=== PATIENT | male | born 1950 | race Caucasian/White ===

== ENCOUNTER → 2020-06-06 11:20 | Outpatient (CLI) | payer MEDICARE, OTHER, SELFPAY ==
--- NOTE | ~2020-06-06 | US_ITS ---
EXAMINATION: US scrotum doppler DATE: 06/06/2020 11:48 INDICATION: Right scrotal swelling for 6-7 months. TECHNIQUE: Grayscale and Doppler ultrasound images of the testes were obtained. COMPARISON: None. FINDINGS: The right testis measures 5.1 x 2.8 x 4.6 cm. The left testis measures 4.5 x 2.4 x 3.0 cm. Left testis demonstrates ill-defined areas of mild hypoechogenicity. There is normal vascular flow to both testes. The right epididymis contains cysts measuring up to 2 mm. The left epididymis is normal with normal vascular flow. There is no hydrocele. There are bilateral varicoceles. IMPRESSION: 1. Heterogeneous echogenicity of the left testis, likely secondary to old insult. 2. Bilateral varicoceles. Reviewed, dictated and finalized at location A. L BEARING BROACHER IMPRESSION: 1. Heterogeneous echogenicity of the left testis, likely secondary to old insu lt. 2. Bilateral varicoceles.
== END ==
PROVIDERS: PCP Family Medicine; Visit Provider Family Medicine
DX: N50.89 Other specified disorders of the male genital organs (principal); I86.1 Scrotal varices
CPT/HCPCS: 76870; 93976

== ENCOUNTER → 2022-05-09 08:20 | Outpatient (CLI) | payer MEDICARE, OTHER, SELFPAY ==
--- NOTE | 2022-05-24 19:57 | WPDHOMESLEEP ---
Sleep Study - Home Unattended Date of Study: 05/09/22 Ordering Provider: Gui Dunn MD Interpreting Provider: Katheryn Boswell, DO Home Sleep Study Type: Watch PAT Height: 1.68 m Weight: 86.183 kg Body Mass Index: 30.7 Neck Circumference (inches): 17 [place]: 6 Reason for Sleep Study Snoring and daytime hypersomnia Sleep History The patient is a 71-year-old male with chronic neck pain, type 2 diabetes, essential tremor neuritis of left ulnar nerve, nocturia, obesity and history of tobacco use a sleep study ordered by his primary care for evaluation of sleep apnea. the patient occasionally snores loud enough that others complain. He denies having trouble sleeping when he has a cold. He rarely wakes up gasping for air throughout the night. He rarely has breathing problems at night observed by self or others. He denies sweating excessively at night. He denies having heart palpitations or irregular heartbeats during the night. Occasionally falls asleep during the day but rarely falls asleep while driving. He denies sleep paralysis, cataplexy and hypnagogic/ hypnopompic hallucinations. Denies having trouble at school work due to sleepiness. He denies feeling afraid of going to sleep. He denies having nightmares. He his dreams. He denies worsening recently. He denies feelings depressed or anxious. He denies having muscular tension he occasionally notices parts of his body jerk. He rarely kicks during the night he occasionally has crawling and aching feelings in his legs and occasionally has pain during night. He denies grinding his teeth during sleep and denies awakening with morning jaw pain. He is rarely bothered by pain during the day and rarely awakened by pain during the night. He rarely wakes up feeling stiff in the morning. He wakes up with sore and achy muscles. Pain in the neck, spine or other joints He goes to his midnight on which days and 1:00 a.m. on the weekends. Takes simvastatin for his falls. He wakes up once throughout the night to urinate. He is able to fall back asleep within 5 minutes. He has 6 hours of sleep per night. He will stay with less than 5 minutes after which the morning. He currently is his . He will consume caffeinated beverage within 2 hours of time. He has sensation physical exercise before bedtime. She is still vision before falling asleep. He will take naps in the afternoon or the evening but they are not refreshing. He does consume caffeinated beverages throughout the day. He is a former smoker. He denies and recreational drug use. [facility] Past Medical History Medical History Acute non-recurrent maxillary sinusitis BMI 30.0-30.9,adult BMI 31.0-31.9,adult BMI 32.0-32.9,adult Body mass index (bmi) 31.0-31.9, adult (07/16/18) BPH without obstruction/lower urinary tract symptoms PSA 0.43 on 10/03/2021. Chronic neck pain Colon cancer screening Controlled type 2 diabetes mellitus with hyperglycemia, without long-term current use of insulin Glucose 91 and hemoglobin A1c 7.0 on 02/28/2021. Glucose 157 with hemoglobin A1c 8.5 and urine microalbumin ratio at 15 on 10/03/2021. COVID-19 (12/08/21) tested positive 12/09/2021. Diabetes mellitus with hyperglycemia, with long-term current use of insulin Enlarged testicle Essential tremor Hypersomnia Hyponatremia sodium 127 on 04/17/2022. this may be secondary to glimepiride, discontinue 04/23/2022 per Infected sebaceous cyst Male erectile dysfunction, unspecified Myalgia Neuritis of left ulnar nerve Nocturia PSA normal at 0.43 on 10/03/2021. Obesity (BMI 30.0-34.9) Syncope (04/17/22) Vitamin B12 deficiency anemia B12 379 on 02/28/2021. Normal at 528 with hemoglobin 13.6 on 10/03/2021. Family History Family History Mother Diabetes mellitus Family history of cardiovascular disease Grandparent Diabetes melissa
[2022-05-24 20:02] VITALS: BMI 30.7
== END ==
PROVIDERS: PCP Family Medicine; Visit Provider Family Medicine
DX: G47.10 Hypersomnia, unspecified (principal); R06.83 Snoring; G47.9 Sleep disorder, unspecified; E11.9 Type 2 diabetes mellitus without complications; G56.22 Lesion of ulnar nerve, left upper limb; Z87.891 Personal history of nicotine dependence
CPT/HCPCS: 99199

== ENCOUNTER 2022-06-29 10:19 | Outpatient (CLI) | payer MEDICARE, OTHER, SELFPAY ==
--- NOTE | ~2022-06-29 | XR_ITS ---
Clinical Indication: Cough PA and lateral views of the chest: Comparison: None Findings: The lungs are clear, without evidence of focal consolidation or pleural effusion. There is evidence of prior CABG. No cardiomegaly. Bones and soft tissues are unremarkable. Impression: Clear lungs. Status post CABG. Reviewed, dictated and finalized at location . Impression: Clear lungs. Status post CABG.
== END 2022-06-29 10:20 | disposition home or self-care (01) ==
LOC: ANHIMG 10:25
PROVIDERS: PCP Family Medicine; Visit Provider Family Medicine
DX: J20.9 Acute bronchitis, unspecified (principal); Z95.1 Presence of aortocoronary bypass graft
CPT/HCPCS: 71046

== ENCOUNTER 2023-03-12 18:20 | Emergency (ER) | payer MEDICARE, OTHER, SELFPAY ==
--- NOTE | ~2023-03-12 | CT_ITS ---
EXAMINATION: CT abdomen pelvis w con DATE: 03/12/2023 23:23 INDICATION: generalized abdominal pain TECHNIQUE: Computed tomography (CT) of the abdomen and pelvis was performed with 100 mL Omnipaque-350 intravenous contrast. Automated exposure control and iterative reconstruction technique were employe d. The dose-length product was 756.52 mGy-cm. COMPARISON: None. FINDINGS: Lower thorax: Coronary artery calcifications Liver: Normal. Biliary/Gallbladder: Cholelithiasis. No bile duct dilation. Pancreas: No mass or duct dilation. Spleen: Normal. Adrenals:No mass. Kidneys: No suspicious mass, obstructing stone, or hydronephrosis. GI tract: No small or large bowel dilation. Normal appendix. Mesentery/Peritoneum: No ascites, mass, or free air. Retroperitoneum: No mass. Atherosclerotic abdominal aortic and/or arterial calcifications. Pelvis: Distended urinary bladder with mild wall thickening. Prostatomegaly. Soft Tissues: Soft tissues and body wall unremarkable. Bones: No acute osseous finding. Bilateral L5 pars defects. Grade 2 anterolisthesis at L5-S1. IMPRESSION: Urinary bladder wall thickening in a distended urinary bladder, correlate for clinical history of uri nary retention and with urinalysis. No other acute abdominal pelvic process detected. Reviewed, dictated and finalized at location K. RUCTOR KNITTING IMPRESSION: Urinary bladder wall thickening in a distended urinary bladder, correlate for c linical history of urinary retention and with urinalysis. No other acute abdominal pelvic process detected.
--- NOTE | ~2023-03-12 | XR_ITS ---
EXAMINATION: XR chest 1V portable Exam Date/Time: 03/12/2023 22:40 [employer] HISTORY: MID ABDOMINAL X 3 DAYS Comparison: 06/29/2022. RESULT: Lines, tubes, and devices: Intact sternotomy wires. Mediastinal surgical clips. Lungs and pleura: Clear. Cardiomediastinal silhouette: Stable. Other: No acute osseous or upper abdominal finding. IMPRESSION: No acute cardiopulmonary process. Reviewed, dictated and finalized at location K. O [employer]
[2023-03-12 18:28] VITALS: BP 128/69; PULSE 79; RESP 20; TEMP 37; O2SAT 97
[2023-03-12 18:57] LABS: Basophils Percent Auto 0.4 % (0.2-1.2); Eosinophils Absolute Auto 0.1 K/mm3 (0-0.3); Hematocrit 37.3 % (42.0-52.0); Hemoglobin 13.3 g/dL (14.0-18.0); Immature Granulocyte Absolute 0.03 K/mm3 (0.00-0.031); Immature Granulocyte Percent A 0.3 % (0-0.5); Lymphocytes Absolute Auto 1.48 K/mm3 (0.9-3.2); Lymphocytes Percent Auto 14.5 % (18.3-44.2); Mean Corpuscular HGB Conc 35.7 g/dl (32-36); Mean Corpuscular Hemoglobin 31.1 pg (26-34); Mean Corpuscular Volume 87.1 fl (80-100); Monocytes Absolute Auto 1.3 K/mm3 (0.1-0.6); Monocytes Percent Auto 12.3 % (2.6-8.5); Neutrophils Absolute Auto 7.3 K/mm3 (1.3-6.7); Neutrophils Percent Auto 71.5 % (45.5-73.1); Platelet Count Result 325 k/mm3 (150-375); Red Blood Count 4.28 M/mm3 (4.6-6.20); Red Cell Distribution Width 11.7 % (11.5-14.5); White Blood Count 10.2 K/mm3 (4.5-10.0)
[2023-03-12 19:14] LABS: Alanine Aminotransferase 27 U/L (6-50); Albumin Level 4.5 g/dL (3.5-5.1); Alkaline Phosphatase 55 U/L (38-126); Anion Gap 13 mmol/L (8-16); Aspartate Amino Transferase 31 U/L (17-59); Bilirubin,Total 0.6 mg/dL (0.2-1.3); Blood Urea Nitrogen 21 mg/dL (9-20); Calcium 9.6 mg/dL (8.4-10.2); Carbon Dioxide 24 mmol/L (22-30); Chloride 87 mmol/L (98-107); Estimated CRCL calculation 48 ml/min; Estimated Glomerular Filt Rate 55; Glucose 189 mg/dL (65-110); Lipase 97 U/L (23-300); Potassium 4.6 mmol/L (3.4-5.0); Sodium 124 mmol/L (137-145)
[2023-03-12 20:02] LABS: Appearance Urine Cloudy (Clear); Bacteria Urine None Seen /hpf; Bilirubin Urine Negative (Negative); Blood Urine Negative (Negative); Color Urine Dark Yellow (Yellow); Glucose Urine UA Negative (Negative); Granular Casts Urine Present /lpf; Hyaline Casts Urine Present /lpf; Ketones Urine Trace mg/dL (Negative); Leukocyte Esterase Ur Negative LEU/UL (Negative); Nitrate Urine Negative (Negative); Protein Urine Trace mg/dL (Negative); RBC Urine 0-2 /hpf (0-2); Specific Grav Ur 1.016 (1.001-1.035); Squamous Epithelial Cell Urine Occasional /hpf (Few); Urobilinogen Urine 0.2 mg/dL (<2.0); WBC Urine 0-5 /hpf
[2023-03-12 20:06] LABS: Add Urine Microscopic? YES
--- NOTE | 2023-03-12 22:06 | ECG_ITS ---
Measurements Intervals [place] Rate: 80 P: 40 VT: 169 QRS: 46 QRSD: 89 T: 83 QT: 382 QTc: 443 Interpretive Statements SINUS RHYTHM MINIMAL Q WAVES- INFERIOR LEADS NONSPECIFIC ST & T-WAVE ABNORMALITY- HIGH LATERAL LEADS BORDERLINE ECG NO PREVIOUS ECG AVAILABLE FOR COMPARISON Electronically Signed On 03-13-2023 6:20:59 [employer] by Prashant Al D.O.
[2023-03-12 22:08] VITALS: BP 156/92; PULSE 76; RESP 15; TEMP 36.8; O2SAT 100
--- NOTE | 2023-03-12 22:38 | ED.ABDPAIN ---
HPI - Abdominal Pain General Chief Complaint: Abdominal Pain Stated Complaint: abd pain Time Seen by Provider: 03/12/23 22:12 History of Present Illness HPI narrative: 72-year-old male with a history of hyponatremia, angina, type 2 diabetes, coronary artery disease, hypertension, hyperlipidemia, history of 3 vessel CABG in 97 and stents placed 2 years ago reports for evaluation for generalized abdominal pain for the past 4 days. Patient states he woke up 4 days ago with abdominal pain that is worse with eating. He states the pain is generalized but states that he had to identify a spot where the pain is worse with deep the left upper quadrant. He states he had approximately 3-4 episodes of diarrhea on day 1 and 2 of the illness which has since resolved. He denies urinary frequency urgency, dysuria hematuria, hematochezia or melena, cough or congestion, fever. He does state that his states he felt hot at the onset of his symptoms 4 days ago. Upon my evaluation, the patient states that his abdominal pain has improved significantly without intervention, however he developed chest pain 20 minutes ago. He states the pain is in his left anterior chest wall and has not radiate anywhere. It is not associated with nausea or diaphoresis. He states it feels like his normal angina. He denies aggravating or alleviating factors. He takes isosorbide daily and believes he took his medications this morning. His leasing agent is Dr. Gutierrez with [facility]. Related Data Home Medications Medication Instructions Recorded Confirmed ferrous sulfate 325 mg (65 mg 325 mg PO DAILY 11/30/22 02/04/23 iron) tablet irbesartan 150 mg tablet 150 mg PO . b.i.d. 02/04/23 02/04/23 Allergies Allergy/AdvReac Type Severity Reaction Status Date / Time [id number] Reductase AdvReac Severe Joint Pain Verified 01/04/23 08:30 Inhibitor Review of Systems Review of Systems: CONSTITUTIONAL: Denies fever, chills, or sweats. EYES: Denies visual changes, redness, or discharge. ENT: Denies rhinorrhea, congestion, sore throat, or otalgia. CARDIOVASCULAR: see HPI RESPIRATORY: Denies cough or dyspnea. GASTROINTESTINAL: see HPI GENITOURINARY: Denies dysuria or hematuria. SKIN: Denies rash or itching. MUSCULOSKELETAL: Denies back pain, joint pain, or myalgia. NEUROLOGIC: Denies headache, numbness, or weakness. PSYCHIATRIC: Denies anxiety or depression. [facility] Past Medical History Medical History Acute bronchitis Chest x-ray 06/29/2022 with no active lung disease. Acute non-recurrent maxillary sinusitis At moderate risk for fall BMI 30.0-30.9,adult BMI 31.0-31.9,adult BMI 32.0-32.9,adult Body mass index (bmi) 31.0-31.9, adult (07/16/18) BPH without obstruction/lower urinary tract symptoms PSA 0.43 on 10/03/2021. Chronic neck pain Colon cancer screening Controlled type 2 diabetes mellitus with hyperglycemia, without long-term current use of insulin Glucose 91 and hemoglobin A1c 7.0 on 02/28/2021. Glucose 157 with hemoglobin A1c 8.5 and urine microalbumin ratio at 15 on 10/03/2021. COVID-19 (12/08/21) tested positive 12/09/2021. Diabetes mellitus with hyperglycemia, with long-term current use of insulin Fasting glucose 80 with hemoglobin A1c 7.8 with urine microalbumin ratio of 9 on 11/26/2022. Encounter for prostate cancer screening Enlarged testicle Essential tremor Hypersomnia home sleep study on 05/09/2022 failed to transmit information and useless test. Patient does not want to recheck. Hyponatremia sodium 127 on 04/17/2022. this may be secondary to glimepiride, discontinue 04/23/2022. Sodium 130 with a chloride 96 on 11/26/2022. Infected sebaceous cyst Male erectile dysfunction, unspecified Myalgia Neuritis of left ulnar nerve Nocturia PSA normal at 0.43 on 10/03/2021. Obesity (BMI 30.0-34.9) Osteoarthritis involving multiple joints on both sides of body Restless legs synd
[2023-03-12] MEDS: NITROGLYCERIN SL 0.4 MG TABLET SUBLINGUAL (23:02)
[2023-03-12] MEDS: SODIUM CHLORIDE 0.9% IV 1,000 ML 999 ML IV CONT (23:02)
--- NOTE | 2023-03-12 23:05 | PC.NURSE ---
Pt reports pain 2/10 before nitro sl.
[2023-03-12] MEDS: ASPIRIN 81 MG CHEWABLE TABLET 324 MG PO (23:06)
[2023-03-12 23:20] VITALS: BP 151/81; PULSE 85; RESP 16; O2SAT 100
[2023-03-12 23:20] LABS: Prothrombin Time 13.4 Seconds (11.1-14.7)
[2023-03-12 23:20] LABS: NT Pro B Type Natriuretic Pept 226 pg/mL (19.9-100); Troponin I < 0.012 ng/mL (0.000-0.034)
[2023-03-12 23:22] LABS: Lactic Acid Reflex 1.2 mmol/L (0.7-2.0); Partial Thromboplastin Time 29.2 SECONDS (22.3-36.8)
[2023-03-13 01:23] VITALS: BP 143/95; PULSE 72; RESP 16; O2SAT 100
[2023-03-13 01:28] LABS: Troponin I < 0.012 ng/mL (0.000-0.034)
[2023-03-13 02:01] LABS: Anion Gap 7 mmol/L (8-16); Blood Urea Nitrogen 17 mg/dL (9-20); Calcium 8.9 mg/dL (8.4-10.2); Carbon Dioxide 26 mmol/L (22-30); Chloride 92 mmol/L (98-107); Estimated CRCL calculation 68 ml/min; Estimated Glomerular Filt Rate > 60; Glucose 146 mg/dL (65-110); Potassium 4.1 mmol/L (3.4-5.0); Sodium 125 mmol/L (137-145)
[2023-03-13] MEDS: SODIUM CHLORIDE 0.9% IV 1,000 ML 999 ML IV CONT (02:09)
[2023-03-13 02:40] VITALS: BP 138/72; PULSE 68; RESP 12; TEMP 36.6; O2SAT 99
== END 2023-03-13 02:41 | disposition home or self-care (01) ==
PROVIDERS: Emergency Medicine; Emergency Provider Physician Assistant; PCP Family Medicine
DX: I25.118 Atherosclerotic heart disease of native coronary artery with other forms of angina pectoris (principal); E87.1 Hypo-osmolality and hyponatremia; E86.0 Dehydration; E87.8 Other disorders of electrolyte and fluid balance, not elsewhere classified; R10.84 Generalized abdominal pain; E11.9 Type 2 diabetes mellitus without complications; I10 Essential (primary) hypertension; M19.90 Unspecified osteoarthritis, unspecified site; Z79.4 Long term (current) use of insulin; Z87.891 Personal history of nicotine dependence; R94.31 Abnormal electrocardiogram [ECG] [EKG]
CPT/HCPCS: 36415; 71045; 74177; 80048; 80053; 81001; 83605; 83690; 83880; 84484; 85025; 85610; 85730; 93005; 96360; 96361; 99284; A9270; J7030; Q9967